=== PATIENT | female | born 1975 | race Caucasian/White ===

== ENCOUNTER 2023-10-12 12:37 | Emergency (ER) | payer OTHER, SELFPAY ==
[2023-10-12 12:55] VITALS: BP 128/79; PULSE 73; RESP 16; TEMP 37.1; O2SAT 100; BMI 22.7
--- NOTE | 2023-10-12 13:03 | DI.RAD.S_ITS ---
PROCEDURE: XR HAND LT MIN 3V INDICATIONS: fall TECHNIQUE: 3 views of the hand(s) acquired. COMPARISON: None. FINDINGS: Bones: No fractures or dislocations. Carpal bones are normally aligned. No suspicious bony lesions. Soft tissues: No suspicious soft tissue calcifications. IMPRESSION: No acute bony abnormality. Dictated by: Natalio Stoll M.D. on 10/12/2023 at 12:20 Approved by: Natalio Stoll M.D. on 10/12/2023 at 12:23
--- NOTE | 2023-10-12 13:55 | ED_ITS ---
HPI - Extremity Injury (Upper) General Chief Complaint: Extremity Injury, Upper Stated Complaint: Left hand injury Time Seen by Provider: 10/12/23 13:36 Source: patient Mode of arrival: Ambulatory History of Present Illness HPI narrative: 48-year-old female with no reported medical issues. Patient was playing capture the flag yesterday with family when she fell on pavement falling little bit on her left shoulder and left hand. Her main concern is she has some abrasions but also quite a bit of bruising on the palmar side little bit over the 5th digit. She has full range of motion states it isn't tender. Denies any paresthesias or weakness. Was seen at the walk-in clinic and sent here. She denies other injuries. States tetanus is not up-to-date she does not wish to updated here. We did discuss risks versus benefits and that she can have it updated within 72 hours of injury. She denies any other medical issues. No regular tobacco or substance use. Related Data Allergies Allergy/AdvReac Type Severity Reaction Status Date / Time No Known Drug Allergies Allergy Verified 10/12/23 12:59 Review of Systems Review of Systems ROS Unobtainable: All systems reviewed & are unremarkable except as noted in HPI and below Patient History Social History Smoking Status: Never smoker Smoking Status: Never smoker Substance Use Type: does not use Exam Narrative Exam Narrative: GENERAL: Alert and oriented x three, HEENT: Head normocephalic, atraumatic, EOMI, pupils reactive, face symmetric, moist mucous membranes NECK: Supple, full range of motion EXTREMITIES: Normal range of motion all 4 extremities. Normal range of motion of left upper extremity. Patient has ecchymosis on the palmar side of the hand particularly over the thenar eminence as well as some ecchymosis of the 5th digit at the middle and proximal joint. Patient has abrasion over the wrist as well as small avulsion finger. Nothing requiring sutures, no subcutaneous tissue exposed. Patient has cap refill less than 2 seconds in all 5 fingers. No bony tenderness. Full range of motion. 2+ radial pulse. No clubbing or edema. Neurovascularly intact NEUROLOGICAL: Cranial nerves II through XII grossly intact. Moving all extremities SKIN: Warm, dry, no petechiae, no rashes or lesions. Initial Vital Signs Initial Vital Signs: Vital Signs Temperature 98.7 F 10/12/23 12:55 Pulse Rate 73 10/12/23 12:55 Respiratory Rate 16 10/12/23 12:55 Blood Pressure 128/79 10/12/23 12:55 Pulse Oximetry 100 10/12/23 12:55 Oxygen Delivery Method Room Air 10/12/23 12:55 Course Orders Ordered: ED Orders 10/12/23 13:03 XR hand LT min 3V Stat Discontinued Medications Bacitracin (Bacitracin Oint 0.9 Gm Pckt) 1 applic TOP NOW ONE Stop: 10/12/23 14:01 Last Admin: 10/12/23 14:15 Dose: Not Given Documented By: NL Vital Signs Vital signs: Vital Signs - 8 hr 10/12/23 12:55 Temperature 98.7 F Pulse Rate 73 Respiratory Rate 16 Blood Pressure 128/79 Pulse Oximetry 100 Oxygen Delivery Method Room Air MDM - Extremity Injury (Upper) Imaging Data Extremity x-ray #1: Radiologist's Impression: Close Hand X-Ray (Signed) Natalio Stoll - 10/12/23 Launch?[place] [address] XRay Report Signed Patient: Shanda Gamboa MR#: [id number] : 1975 Acct:[id number] Age/Sex: 48 / F Date of Service: 10/12/23 Loc: ED Accession Number: [id number] Procedure: XR hand LT min 3V Ordering Provider: Christen Madera D.O. PROCEDURE: XR HAND LT MIN 3V INDICATIONS: fall TECHNIQUE: 3 views of the hand(s) acquired. COMPARISON: None. FINDINGS: Bones: No fractures or dislocations. Carpal bones are normally aligned. No suspicious bony lesions. Soft tissues: No suspicious soft tissue calcifications. IMPRESSION: No acute bony abnormality. Dictated by: Natalio Stoll M.D. on 10/12/2023 at 12:20 Approved by: Natalio Stoll M.D. on 10/12/2023 at 12:23 [facility] Narrative Medical decision making narrative: 48-year-old female with no reported medical issues had bruising although no bony tenderness on examination. X-ray of hand shows no obvious fractures. Patient is neurovascularly intact otherwise. Has some all abrasions require basic wound care. She does defer tetanus today. Discharge Plan Departure Patient Disposition: Home Clinical Impression: Contusion of hand Qualifiers: Encounter type: initial encounter Laterality: left Qualified Code(s): S60.222A - Contusion of left hand, initial encounter Abrasion of hand and fingers Qualifiers: Encounter type: initial encounter Laterality: left Qualified Code(s): S60.512A - Abrasion of left hand, initial encounter Activity Restrictions/Additional Instructions: Follow up with primary care as needed. Wound Care: Keep wound(s) clean and dry. Wash daily with soap and water only. Do not use over the counter products (alcohol or peroxide)on the wounds unless instructed by a physician, can use topical triple antibiotic ointment over the affected area once or twice daily. If wound condition worsens (increased/expanding redness, developing fluid blisters, or worsening pain), either contact your doctor for an urgent re- assessment , or return to the Emergency Department. Return to the Emergency Department for any new or worsening symptoms. Return if fever greater than 100.4 Fahrenheit, increased swelling, increasing pain or worsening symptoms such as increased discharge or spreading redness. Stand Alone Forms: Patient Portal/API
--- NOTE | 2023-10-12 14:17 | PC.NURSE ---
sent from [facility]. fall onto outstretched hand, large bruise. r/o possible break. assessment done by provider.
== END 2023-10-12 14:17 | disposition home or self-care (01) ==
PROVIDERS: Emergency Provider Emergency Medicine
DX: S60.222A Contusion of left hand, initial encounter (principal); S60.512A Abrasion of left hand, initial encounter; W18.30XA Fall on same level, unspecified, initial encounter; Y93.62 Activity, american flag or touch football
CPT/HCPCS: 73130; 99281; 99283